=== PATIENT | male | born 1985 | race Caucasian/White ===

== ENCOUNTER 2017-11-06 12:44 | Inpatient (IN) | payer OTHER ==
[2017-11-06] MEDS: ONDANSETRON PF 4 MG/2 ML VIAL. IV ×3 (13:30→19:46)
[2017-11-06 13:44] LABS: BASO # 0.1 x10^3/uL (0.0-0.2); BASO % 0 % (0-3); EOS # 0.1 x10^3/uL (0.0-0.7); EOS % 1 % (0-3); HEMATOCRIT 48.9 % (39.0-53.0); LYMPH % 17 % (24-48); MEAN CORPUSCULAR HEMOGLOBIN 29 pg (25-35); MEAN CORPUSCULAR HGB CONC 35 g/dL (31-37); MEAN CORPUSCULAR VOLUME 84 fL (79-100); MONO # 1.3 x10^3/uL (0.0-1.1); MONO % 5 % (0-9); NEUT # 18.6 x10^3uL (1.8-7.7); NEUT % 77 % (31-73); PLATELET COUNT 312 x10^3/uL (140-400); RED BLOOD COUNT 5.82 x10^6/uL (4.30-5.70); RED CELL DISTRIBUTION WIDTH 14.1 % (11.5-14.5); WHITE BLOOD COUNT 24.1 x10^3/uL (4.0-11.0)
[2017-11-06 13:45] LABS: ADD MAN DIFF? YES
[2017-11-06 14:06] LABS: ANION GAP 15 (6-14); BLOOD UREA NITROGEN 12 mg/dL (8-26); BUN/CREATININE RATIO 10 (6-20); CALCIUM 9.4 mg/dL (8.5-10.1); CARBON DIOXIDE 23 mmol/L (21-32); CHLORIDE 100 mmol/L (98-107); CREATININE 1.2 mg/dL (0.7-1.3); GFR 69.7; GLUCOSE 155 mg/dL (70-99); SODIUM 138 mmol/L (136-145)
[2017-11-06 14:13] LABS: LACTIC ACID 0.9 mmol/L (0.4-2.0)
[2017-11-06 14:18] LABS: TROPONINI < 0.017 ng/mL (0.000-0.055)
[2017-11-06 14:21] LABS: ALBUMIN 4.8 g/dL (3.4-5.0); ALBUMIN/GLOBULIN RATIO 1.2 (1.0-1.7); ALK PHOS 121 U/L (46-116); ALT (SGPT) 72 U/L (16-63); AST (SGOT) 23 U/L (15-37); TOTAL BILIRUBIN 0.5 mg/dL (0.2-1.0); TOTAL PROTEIN 8.7 g/dL (6.4-8.2)
[2017-11-06 14:23] LABS: BILIRUBIN,URINE NEGATIVE (NEG); CLARITY,URINE CLEAR; COLOR,URINE YELLOW; GLUCOSE,URINE NEGATIVE (NEG); NITRITE,URINE NEGATIVE (NEG); PROTEIN,URINE NEGATIVE (NEG-TRACE); UROBILINOGEN,URINE 0.2 mg/dL (0.2 mg/dL)
[2017-11-06 14:35] LABS: BACTERIA,URINE 0 /HPF (0-FEW); HYALINE CASTS, URINE FEW /HPF; RBC,URINE 0 /HPF (0-2); SQUAMOUS EPITHELIAL CELL,UR OCC /LPF; WBC,URINE RARE /HPF (0-4)
[2017-11-06 14:58] LABS: LIPASE 27680 U/L (73-393)
[2017-11-06] MEDS: MORPHINE SULFATE 4 MG/ML DISP.SYRIN. IV/SQ (14:58)
[2017-11-06 15:04] LABS: % BANDS 5 % (0-9); % LYMPHS 17 % (24-48); % MONOS 2 % (0-10); % SEGS 76 % (35-66); PLT ESTIMATE ADEQUATE (ADEQUATE)
[2017-11-06] MEDS: IOHEXOL 300 MG/ML 100ML VIAL. IV (15:22)
[2017-11-06] MEDS ORDERED: CONTRAST GIVEN. MC (15:30)
[2017-11-06] MEDS: MORPHINE SULFATE 4 MG/ML DISP.SYRIN. IV ×2 (17:12→19:39)
[2017-11-06] MEDS: IV DEXTROSE 5%-LACT RINGERS 1,000 ML IV (17:26)
[2017-11-06] MEDS: NICOTINE 21MG PATCH. TD (18:00)
[2017-11-06 18:39] LABS: PROTHROMBIN TIME PATIENT 12.9 SEC (11.7-14.0)
[2017-11-06] MEDS: LORazepam 0.5 MG TABLET PO (19:39)
[2017-11-06] MEDS: fentaNYL PF VIAL 100 MCG/2 ML VIAL IV ×2 (21:09→23:28)
[2017-11-06] MEDS ORDERED: fentaNYL PF VIAL 100 MCG/2 ML VIAL IM (21:15)
[2017-11-06 22:14] LABS: LACTIC ACID 3.7 mmol/L (0.4-2.0)
[2017-11-06] MEDS ORDERED: PIP/TAZO PER PHARMACY MC (23:15)
[2017-11-06] MEDS: PIPERACILLIN/TAZOBACTAM 4.5 GM in IV NORMAL SALINE 100ML 100 ML IV (23:32)
[2017-11-06] MEDS: IV NORMAL SALINE 1000ML BAG 1,000 ML IV (23:37)
[2017-11-07] MEDS: fentaNYL PF VIAL 100 MCG/2 ML VIAL IV ×5 (00:41→05:53)
[2017-11-07 04:28] LABS: ADD MAN DIFF? NO
[2017-11-07 04:48] LABS: ALK PHOS 96 U/L (46-116); ALT (SGPT) 55 U/L (16-63); ANION GAP 11 (6-14); AST (SGOT) 25 U/L (15-37); BLOOD UREA NITROGEN 18 mg/dL (8-26); BUN/CREATININE RATIO 11 (6-20); CALCIUM 8.9 mg/dL (8.5-10.1); CARBON DIOXIDE 24 mmol/L (21-32); CHLORIDE 97 mmol/L (98-107); CREATININE 1.6 mg/dL (0.7-1.3); GLUCOSE 173 mg/dL (70-99); SODIUM 132 mmol/L (136-145); TOTAL BILIRUBIN 1.1 mg/dL (0.2-1.0); TOTAL PROTEIN 8.2 g/dL (6.4-8.2)
[2017-11-07 04:51] LABS: LACTIC ACID 3.8 mmol/L (0.4-2.0)
[2017-11-07 05:00] LABS: POTASSIUM 6.1 mmol/L (3.5-5.1)
[2017-11-07 05:18] LABS: BASO % 0 % (0-3); EOS % 0 % (0-3); HEMATOCRIT 53.4 % (39.0-53.0); HEMOGLOBIN 18.7 g/dL (13.0-17.5); LYMPH # 0.9 x10^3/uL (1.0-4.8); LYMPH % 5 % (24-48); MEAN CORPUSCULAR HEMOGLOBIN 30 pg (25-35); MEAN CORPUSCULAR HGB CONC 35 g/dL (31-37); MEAN CORPUSCULAR VOLUME 85 fL (79-100); MONO # 0.9 x10^3/uL (0.0-1.1); MONO % 5 % (0-9); NEUT # 16.9 x10^3uL (1.8-7.7); NEUT % 90 % (31-73); PLATELET COUNT 230 x10^3/uL (140-400); RED BLOOD COUNT 6.32 x10^6/uL (4.30-5.70); WHITE BLOOD COUNT 18.8 x10^3/uL (4.0-11.0)
[2017-11-07] MEDS: PROCHLORPERAZINE 10 MG/2 ML VIAL. IV ×2 (05:54→07:54)
[2017-11-07] MEDS: IV NORMAL SALINE 500ML BAG 500 ML IV (06:00)
[2017-11-07] MEDS ORDERED: CEFEPIME HCL 2 GM in IV DEXTROSE 5% 100ML 100 ML IV (06:00)
[2017-11-07] MEDS: PIPERACILLIN/TAZOBACTAM 4.5 GM in IV NORMAL SALINE 100ML 100 ML IV ×4 (06:01→23:04)
[2017-11-07] MEDS: CEFEPIME HCL IV Push 2 GM VIAL. IVP ×3 (06:03→21:23)
[2017-11-07 06:25] LABS: TROPONINI < 0.017 ng/mL (0.000-0.055)
[2017-11-07 06:27] LABS: TRIGLYCERIDES 534 mg/dL (0-150)
[2017-11-07] MEDS ORDERED: NALOXONE 0.4 MG/ML VIAL. IV (07:15)
[2017-11-07] MEDS: IV 1/2 NORMAL SALINE 500 ML IV (07:15)
[2017-11-07] MEDS: IV NORMAL SALINE 1000ML BAG 1,000 ML IV ×4 (08:25→21:23)
[2017-11-07] MEDS: MORPHINE SULFATE/PF 30 ML IV ×2 (09:03→22:09)
[2017-11-07] MEDS: NICOTINE 21MG PATCH. TD (10:34)
[2017-11-07 11:04] LABS: LACTIC ACID 2.3 mmol/L (0.4-2.0)
[2017-11-07] MEDS: PANTOPRAZOLE IV PUSH 40 MG VIAL. IVP (11:40)
[2017-11-07 17:47] LABS: LACTIC ACID 1.4 mmol/L (0.4-2.0)
[2017-11-07 23:34] LABS: LACTIC ACID 1.1 mmol/L (0.4-2.0)
[2017-11-08] MEDS: IV NORMAL SALINE 1000ML BAG 1,000 ML IV ×5 (04:09→22:15)
[2017-11-08] MEDS: CEFEPIME HCL IV Push 2 GM VIAL. IVP ×3 (05:03→21:09)
[2017-11-08] MEDS: PIPERACILLIN/TAZOBACTAM 4.5 GM in IV NORMAL SALINE 100ML 100 ML IV ×4 (05:08→22:59)
[2017-11-08] MEDS: PANTOPRAZOLE IV PUSH 40 MG VIAL. IVP (05:08)
[2017-11-08] MEDS: PROCHLORPERAZINE 10 MG/2 ML VIAL. IV (07:59)
[2017-11-08] MEDS: NICOTINE 21MG PATCH. TD (07:59)
[2017-11-08 12:26] LABS: BASO % 0 % (0-3); EOS % 0 % (0-3); HEMATOCRIT 44.1 % (39.0-53.0); HEMOGLOBIN 15.2 g/dL (13.0-17.5); LYMPH # 0.9 x10^3/uL (1.0-4.8); LYMPH % 6 % (24-48); MEAN CORPUSCULAR HEMOGLOBIN 29 pg (25-35); MEAN CORPUSCULAR HGB CONC 35 g/dL (31-37); MEAN CORPUSCULAR VOLUME 85 fL (79-100); MONO # 0.6 x10^3/uL (0.0-1.1); MONO % 4 % (0-9); NEUT # 13.4 x10^3uL (1.8-7.7); NEUT % 90 % (31-73); PLATELET COUNT 164 x10^3/uL (140-400); RED BLOOD COUNT 5.21 x10^6/uL (4.30-5.70); RED CELL DISTRIBUTION WIDTH 14.1 % (11.5-14.5); WHITE BLOOD COUNT 14.9 x10^3/uL (4.0-11.0)
[2017-11-08 12:37] LABS: ADD MAN DIFF? YES
[2017-11-08 12:41] LABS: ALBUMIN 2.5 g/dL (3.4-5.0); ALBUMIN/GLOBULIN RATIO 0.7 (1.0-1.7); ALK PHOS 64 U/L (46-116); ALT (SGPT) 32 U/L (16-63); ANION GAP 12 (6-14); AST (SGOT) 24 U/L (15-37); BLOOD UREA NITROGEN 11 mg/dL (8-26); BUN/CREATININE RATIO 9 (6-20); CARBON DIOXIDE 21 mmol/L (21-32); CHLORIDE 99 mmol/L (98-107); CREATININE 1.2 mg/dL (0.7-1.3); GFR 69.7; GLUCOSE 166 mg/dL (70-99); LIPASE 1445 U/L (73-393); SODIUM 132 mmol/L (136-145); TOTAL BILIRUBIN 3.9 mg/dL (0.2-1.0); TOTAL PROTEIN 6.3 g/dL (6.4-8.2)
[2017-11-08 13:56] LABS: % BANDS 17 % (0-9); % LYMPHS 7 % (24-48); % MONOS 1 % (0-10); % SEGS 75 % (35-66); PLT ESTIMATE ADEQUATE (ADEQUATE)
[2017-11-08] MEDS: MORPHINE SULFATE/PF 30 ML IV (17:35)
[2017-11-08] MEDS: LACTOBACILLUS RHAMNOSUS GG 1 CAPSULE. PO (19:50)
[2017-11-08 21:11] LABS: IGG1 436 mg/dL (248-810); IGG2 376 mg/dL (130-555); IGG3 54 mg/dL (15-102); IGG4 31 mg/dL (2-96); TOTAL IGG 851 mg/dL (700-1600)
[2017-11-09] MEDS: NICOTINE POLACRILEX 2MG GUM PACKAGE of 12. BC ×3 (00:43→20:35)
[2017-11-09] MEDS: IV NORMAL SALINE 1000ML BAG 1,000 ML IV ×4 (04:10→20:09)
[2017-11-09] MEDS: PIPERACILLIN/TAZOBACTAM 4.5 GM in IV NORMAL SALINE 100ML 100 ML IV ×3 (04:54→17:56)
[2017-11-09] MEDS: CEFEPIME HCL IV Push 2 GM VIAL. IVP (04:54)
[2017-11-09 05:23] LABS: ADD MAN DIFF? NO
[2017-11-09 05:45] LABS: BASO % 0 % (0-3); EOS % 0 % (0-3); HEMATOCRIT 39.9 % (39.0-53.0); HEMOGLOBIN 13.6 g/dL (13.0-17.5); LYMPH # 0.8 x10^3/uL (1.0-4.8); LYMPH % 8 % (24-48); MEAN CORPUSCULAR HEMOGLOBIN 29 pg (25-35); MEAN CORPUSCULAR HGB CONC 34 g/dL (31-37); MEAN CORPUSCULAR VOLUME 85 fL (79-100); MONO # 0.6 x10^3/uL (0.0-1.1); MONO % 6 % (0-9); NEUT # 9.2 x10^3uL (1.8-7.7); NEUT % 86 % (31-73); PLATELET COUNT 141 x10^3/uL (140-400); RED BLOOD COUNT 4.69 x10^6/uL (4.30-5.70); RED CELL DISTRIBUTION WIDTH 14.1 % (11.5-14.5); WHITE BLOOD COUNT 10.8 x10^3/uL (4.0-11.0)
[2017-11-09 06:15] LABS: ALBUMIN 2.6 g/dL (3.4-5.0); ALBUMIN/GLOBULIN RATIO 0.8 (1.0-1.7); ALK PHOS 68 U/L (46-116); ALT (SGPT) 38 U/L (16-63); ANION GAP 15 (6-14); AST (SGOT) 38 U/L (15-37); BLOOD UREA NITROGEN 9 mg/dL (8-26); BUN/CREATININE RATIO 10 (6-20); CALCIUM 7.9 mg/dL (8.5-10.1); CARBON DIOXIDE 19 mmol/L (21-32); CHLORIDE 99 mmol/L (98-107); CREATININE 0.9 mg/dL (0.7-1.3); DIRECT BILIRUBIN 3.7 mg/dL (0.0-0.2); GFR 97.2; GLUCOSE 133 mg/dL (70-99); LIPASE 775 U/L (73-393); SODIUM 133 mmol/L (136-145); TOTAL BILIRUBIN 5.1 mg/dL (0.2-1.0); TOTAL PROTEIN 5.7 g/dL (6.4-8.2)
[2017-11-09 07:57] LABS: LACTIC ACID 0.6 mmol/L (0.4-2.0)
[2017-11-09] MEDS: MORPHINE SULFATE/PF 30 ML IV ×3 (08:36→20:35)
[2017-11-09] MEDS: PANTOPRAZOLE IV PUSH 40 MG VIAL. IVP (08:42)
[2017-11-09] MEDS: NICOTINE 21MG PATCH. TD (08:44)
[2017-11-09] MEDS: LACTOBACILLUS RHAMNOSUS GG 1 CAPSULE. PO ×2 (08:44→20:08)
[2017-11-09 18:14] LABS: ANA INTERP Negative (.)
[2017-11-10] MEDS: IV NORMAL SALINE 1000ML BAG 1,000 ML IV ×5 (05:18→20:55)
[2017-11-10] MEDS: PIPERACILLIN/TAZOBACTAM 4.5 GM in IV NORMAL SALINE 100ML 100 ML IV ×2 (05:18)
[2017-11-10 05:20] LABS: ADD MAN DIFF? NO
[2017-11-10] MEDS: MORPHINE SULFATE/PF 30 ML IV (05:24)
[2017-11-10 05:37] LABS: BASO % 0 % (0-3); EOS # 0.1 x10^3/uL (0.0-0.7); EOS % 2 % (0-3); HEMATOCRIT 37.9 % (39.0-53.0); HEMOGLOBIN 12.9 g/dL (13.0-17.5); LYMPH # 1.1 x10^3/uL (1.0-4.8); LYMPH % 12 % (24-48); MEAN CORPUSCULAR HEMOGLOBIN 29 pg (25-35); MEAN CORPUSCULAR HGB CONC 34 g/dL (31-37); MEAN CORPUSCULAR VOLUME 86 fL (79-100); MONO # 0.9 x10^3/uL (0.0-1.1); MONO % 10 % (0-9); NEUT # 6.9 x10^3uL (1.8-7.7); NEUT % 77 % (31-73); PLATELET COUNT 155 x10^3/uL (140-400); RED BLOOD COUNT 4.43 x10^6/uL (4.30-5.70); RED CELL DISTRIBUTION WIDTH 13.9 % (11.5-14.5)
[2017-11-10 05:47] LABS: ALBUMIN 2.6 g/dL (3.4-5.0); ALBUMIN/GLOBULIN RATIO 0.6 (1.0-1.7); ALK PHOS 81 U/L (46-116); ALT (SGPT) 50 U/L (16-63); ANION GAP 10 (6-14); AST (SGOT) 44 U/L (15-37); BLOOD UREA NITROGEN 7 mg/dL (8-26); BUN/CREATININE RATIO 8 (6-20); CALCIUM 8.2 mg/dL (8.5-10.1); CARBON DIOXIDE 26 mmol/L (21-32); CHLORIDE 105 mmol/L (98-107); CREATININE 0.9 mg/dL (0.7-1.3); GFR 97.2; GLUCOSE 115 mg/dL (70-99); POTASSIUM 3.7 mmol/L (3.5-5.1); SODIUM 141 mmol/L (136-145); TOTAL BILIRUBIN 5.4 mg/dL (0.2-1.0); TOTAL PROTEIN 6.8 g/dL (6.4-8.2)
[2017-11-10] MEDS: PANTOPRAZOLE IV PUSH 40 MG VIAL. IVP (09:02)
[2017-11-10] MEDS: NICOTINE 21MG PATCH. TD (09:04)
[2017-11-10] MEDS ORDERED: oxyCODONE/APAP 5/325 1 TAB TABLET PO (10:30)
[2017-11-10 11:38] LABS: LIPASE 258 U/L (73-393)
[2017-11-10] MEDS: oxyCODONE/APAP 10/325 1 TAB TABLET PO ×3 (13:18→22:37)
[2017-11-10] MEDS: PANTOPRAZOLE 40 MG TABLET.DR. PO (13:32)
[2017-11-10] MEDS: DOCUSATE SODIUM 100 MG CAPSULE. PO (13:32)
[2017-11-10] MEDS: POLYETHYLENE GLYCOL 3350 17 GM PACKET. PO (13:32)
[2017-11-10] MEDS: LACTOBACILLUS RHAMNOSUS GG 1 CAPSULE. PO ×2 (13:32→21:17)
[2017-11-10] MEDS: fentaNYL PF VIAL 100 MCG/2 ML VIAL IV ×4 (16:30→23:31)
[2017-11-10] MEDS: MAGNESIUM HYDROXIDE 2,400 MG/30 ML ORAL.SUSP. PO (19:24)
[2017-11-10] MEDS: PROCHLORPERAZINE 10 MG/2 ML VIAL. IV (19:29)
[2017-11-10] MEDS: LORazepam 0.5 MG TABLET PO (21:17)
[2017-11-11] MEDS: oxyCODONE/APAP 10/325 1 TAB TABLET PO ×6 (03:09→23:20)
[2017-11-11] MEDS: fentaNYL PF VIAL 100 MCG/2 ML VIAL IV ×10 (03:10→23:22)
[2017-11-11] MEDS: PROCHLORPERAZINE 10 MG/2 ML VIAL. IV (03:12)
[2017-11-11] MEDS: IV NORMAL SALINE 1000ML BAG 1,000 ML IV ×2 (03:35→05:37)
[2017-11-11 04:24] LABS: HEMATOCRIT 36.1 % (39.0-53.0); HEMOGLOBIN 12.5 g/dL (13.0-17.5); MEAN CORPUSCULAR HEMOGLOBIN 29 pg (25-35); MEAN CORPUSCULAR HGB CONC 35 g/dL (31-37); MEAN CORPUSCULAR VOLUME 85 fL (79-100); PLATELET COUNT 182 x10^3/uL (140-400); RED BLOOD COUNT 4.26 x10^6/uL (4.30-5.70); RED CELL DISTRIBUTION WIDTH 13.9 % (11.5-14.5); WHITE BLOOD COUNT 10.5 x10^3/uL (4.0-11.0)
[2017-11-11 04:36] LABS: ALBUMIN 2.6 g/dL (3.4-5.0); ALBUMIN/GLOBULIN RATIO 0.6 (1.0-1.7); ALK PHOS 163 U/L (46-116); ALT (SGPT) 64 U/L (16-63); ANION GAP 10 (6-14); AST (SGOT) 58 U/L (15-37); BLOOD UREA NITROGEN 6 mg/dL (8-26); BUN/CREATININE RATIO 8 (6-20); CALCIUM 8.6 mg/dL (8.5-10.1); CARBON DIOXIDE 25 mmol/L (21-32); CHLORIDE 100 mmol/L (98-107); CREATININE 0.8 mg/dL (0.7-1.3); GFR 111.3; GLUCOSE 177 mg/dL (70-99); LIPASE 170 U/L (73-393); POTASSIUM 3.3 mmol/L (3.5-5.1); SODIUM 135 mmol/L (136-145); TOTAL BILIRUBIN 4.6 mg/dL (0.2-1.0); TOTAL PROTEIN 6.8 g/dL (6.4-8.2)
[2017-11-11] MEDS: LACTOBACILLUS RHAMNOSUS GG 1 CAPSULE. PO ×2 (08:41→20:17)
[2017-11-11] MEDS: DOCUSATE SODIUM 100 MG CAPSULE. PO (08:41)
[2017-11-11] MEDS: POLYETHYLENE GLYCOL 3350 17 GM PACKET. PO (08:42)
[2017-11-11] MEDS: NICOTINE 21MG PATCH. TD (08:45)
[2017-11-11] MEDS: PANTOPRAZOLE 40 MG TABLET.DR. PO (08:58)
[2017-11-11] MEDS: LORazepam 0.5 MG TABLET PO (19:10)
[2017-11-11] MEDS: SIMETHICONE 80 MG TAB.CHEW PO (19:10)
[2017-11-11] MEDS: traMADol 50 MG TABLET PO (19:15)
[2017-11-11] MEDS: MAGNESIUM HYDROXIDE 2,400 MG/30 ML ORAL.SUSP. PO (20:20)
[2017-11-11] MEDS: ALPRAZolam 1 MG TABLET PO (22:19)
[2017-11-11] MEDS: ZOLPIDEM 5 MG TABLET. PO (22:19)
[2017-11-12] MEDS: fentaNYL PF VIAL 100 MCG/2 ML VIAL IV ×6 (01:23→23:02)
[2017-11-12] MEDS: SIMETHICONE 80 MG TAB.CHEW PO ×4 (02:45→19:46)
[2017-11-12] MEDS: oxyCODONE/APAP 10/325 1 TAB TABLET PO ×5 (03:27→20:15)
[2017-11-12] MEDS: MORPHINE SULFATE 4 MG/ML DISP.SYRIN. IV ×8 (05:07→20:57)
[2017-11-12] MEDS: ALPRAZolam 1 MG TABLET PO ×3 (05:16→17:38)
[2017-11-12] MEDS: IV NORMAL SALINE 1000ML BAG 1,000 ML IV (05:54)
[2017-11-12] MEDS: POLYETHYLENE GLYCOL 3350 17 GM PACKET. PO (07:20)
[2017-11-12] MEDS: DOCUSATE SODIUM 100 MG CAPSULE. PO (07:21)
[2017-11-12] MEDS: LACTOBACILLUS RHAMNOSUS GG 1 CAPSULE. PO ×2 (07:21→19:45)
[2017-11-12] MEDS: PANTOPRAZOLE 40 MG TABLET.DR. PO (07:21)
[2017-11-12] MEDS: NICOTINE 21MG PATCH. TD (07:21)
[2017-11-12 13:23] LABS: ALBUMIN 2.7 g/dL (3.4-5.0); ALK PHOS 236 U/L (46-116); ALT (SGPT) 59 U/L (16-63); ANION GAP 9 (6-14); AST (SGOT) 38 U/L (15-37); BLOOD UREA NITROGEN 7 mg/dL (8-26); CALCIUM 8.7 mg/dL (8.5-10.1); CARBON DIOXIDE 28 mmol/L (21-32); CHLORIDE 103 mmol/L (98-107); CREATININE 0.9 mg/dL (0.7-1.3); DIRECT BILIRUBIN 1.6 mg/dL (0.0-0.2); GFR 97.2; GLUCOSE 139 mg/dL (70-99); LIPASE 159 U/L (73-393); POTASSIUM 3.7 mmol/L (3.5-5.1); SODIUM 140 mmol/L (136-145); TOTAL BILIRUBIN 2.3 mg/dL (0.2-1.0); TOTAL PROTEIN 7.2 g/dL (6.4-8.2)
[2017-11-12] MEDS: MAGNESIUM HYDROXIDE 2,400 MG/30 ML ORAL.SUSP. PO (14:31)
[2017-11-12] MEDS: LIDO:MAALOX 1:1 20 ML SINGLE DOSE. PO ×2 (15:29→21:31)
[2017-11-12] MEDS: NICOTINE POLACRILEX 2MG GUM PACKAGE of 12. BC (19:45)
[2017-11-12] MEDS: ZOLPIDEM 5 MG TABLET. PO (19:45)
[2017-11-13] MEDS: ALPRAZolam 1 MG TABLET PO ×2 (00:32→07:54)
[2017-11-13] MEDS: MORPHINE SULFATE 4 MG/ML DISP.SYRIN. IV ×2 (00:33→05:45)
[2017-11-13] MEDS: IV NORMAL SALINE 1000ML BAG 1,000 ML IV (00:33)
[2017-11-13] MEDS: fentaNYL PF VIAL 100 MCG/2 ML VIAL IV (02:53)
[2017-11-13] MEDS: traMADol 50 MG TABLET PO (06:35)
[2017-11-13] MEDS: PANTOPRAZOLE 40 MG TABLET.DR. PO (07:54)
[2017-11-13] MEDS: LACTOBACILLUS RHAMNOSUS GG 1 CAPSULE. PO (08:27)
[2017-11-13] MEDS: DOCUSATE SODIUM 100 MG CAPSULE. PO (08:27)
[2017-11-13] MEDS: POLYETHYLENE GLYCOL 3350 17 GM PACKET. PO (08:27)
[2017-11-13] MEDS: oxyCODONE/APAP 10/325 1 TAB TABLET PO (08:28)
[2017-11-13] MEDS: NICOTINE 21MG PATCH. TD (08:47)
== END 2017-11-13 12:00 | disposition home or self-care (01) | DRG 871 ==
LOC: 1 WEST ICU 11-07 07:42 → ER 12:44 → 5 NORTH 11-07 20:53
DX: A41.9 Sepsis, unspecified organism (principal); K85.90 Acute pancreatitis without necrosis or infection, unspecified; N17.9 Acute kidney failure, unspecified; E44.1 Mild protein-calorie malnutrition; E87.2 Acidosis; R65.10 Systemic inflammatory response syndrome (SIRS) of non-infectious origin without acute organ dysfunction; Z68.31 Body mass index [BMI] 31.0-31.9, adult; E66.01 Morbid (severe) obesity due to excess calories; E87.5 Hyperkalemia; F17.210 Nicotine dependence, cigarettes, uncomplicated; F31.9 Bipolar disorder, unspecified; F41.0 Panic disorder [episodic paroxysmal anxiety]; K59.00 Constipation, unspecified; Z81.8 Family history of other mental and behavioral disorders; Z88.6 Allergy status to analgesic agent; Z88.8 Allergy status to other drugs, medicaments and biological substances; D72.829 Elevated white blood cell count, unspecified; Z90.49 Acquired absence of other specified parts of digestive tract; E80.6 Other disorders of bilirubin metabolism; M54.5 Low back pain
CPT/HCPCS: 36415; 71045; 74018; 74177; 74181; 76705; 80048; 80053; 80076; 81001; 82248; 82787; 83605; 83690; 84443; 84478; 84484; 85007; 85025; 85027; 85610; 86038; 87040; 93005; 96374; 96375; 96376; 99291; 99291-25; C9113; J0692; J0780; J2060; J2270; J2405; J2543; J3010; J3490; J7030; J7040; Q9967

== ENCOUNTER 2021-01-09 14:50 | Emergency (ER) | payer OTHER ==
[~2021-01-09] VITALS: Ht 185.4 cm; Wt 104.5 kg
[~2021-01-09 14:50] MED LIST: ALPR0.5T6 PO; LORA0.5T96 PO; OXYC1TAB7 PO
[2021-01-09 17:01] LABS: BASO # 0.1 x10^3/uL (0.0-0.2); BASO % 1 % (0-3); EOS # 0.3 x10^3/uL (0.0-0.7); EOS % 3 % (0-3); HEMOGLOBIN 10.6 g/dL (13.0-17.5); LYMPH # 2.3 x10^3/uL (1.0-4.8); LYMPH % 21 % (24-48); MEAN CORPUSCULAR HEMOGLOBIN 24 pg (25-35); MEAN CORPUSCULAR HGB CONC 33 g/dL (31-37); MEAN CORPUSCULAR VOLUME 74 fL (79-100); MONO # 0.5 x10^3/uL (0.0-1.1); MONO % 5 % (0-9); NEUT # 7.6 x10^3/uL (1.8-7.7); NEUT % 69 % (31-73); PLATELET COUNT 411 x10^3/uL (140-400); RED BLOOD COUNT 4.35 x10^6/uL (4.30-5.70); RED CELL DISTRIBUTION WIDTH 16.6 % (11.5-14.5); WHITE BLOOD COUNT 10.9 x10^3/uL (4.0-11.0)
[2021-01-09 17:13] LABS: CALCIUM 9.4 mg/dL (8.5-10.1); CREATININE 0.9 mg/dL (0.7-1.3); GFR 95.5; POTASSIUM 3.8 mmol/L (3.5-5.1)
[2021-01-09] MEDS ORDERED: ONDANSETRON PF 4 MG/2 ML VIAL. IVP ONE (17:15)
[2021-01-09] MEDS ORDERED: IV NORMAL SALINE 1000ML BAG 1,000 ML IV ONE (17:15)
[2021-01-09] MEDS ORDERED: MORPHINE SULFATE 10 MG/ML VIAL. IV ONE ×2 (17:15→20:00)
[2021-01-09 17:18] LABS: ALBUMIN 3.6 g/dL (3.4-5.0); TOTAL BILIRUBIN 0.2 mg/dL (0.2-1.0); TOTAL PROTEIN 7.3 g/dL (6.4-8.2)
[2021-01-09 18:01] LABS: BILIRUBIN,URINE NEGATIVE (NEG); CLARITY,URINE CLEAR; COLOR,URINE YELLOW; NITRITE,URINE NEGATIVE (NEG); PH,URINE 8.5 (<5.0-8.0); PROTEIN,URINE 30 mg/dL (NEG-TRACE); UROBILINOGEN,URINE 0.2 mg/dL (0.2 mg/dL)
--- NOTE | 2021-01-09 18:04 | ED.ADGEN ---
Past Medical History Past Medical History: Anxiety Past Surgical History: Other Additional Past Surgical Histo: FLUID DRAINED OFF OF CYST/ABDOMEN Smoking Status: Current Every Day Smoker Additional Information: 1 PPD Alcohol Use: None Drug Use: None General Adult EDM: Chief Complaint: ABDOMINAL PAIN HPI: HPI: Patient is a 35-year-old male who presents to the emergency room complaining of epigastric abdominal pain and vomiting. Patient has been having issues with chronic pancreatitis for the last 3 months. He last got out of [facility] 2 weeks ago. He has been out of pain medicine for the last 3 or 4 days. He is supposed to be see a pain specialist next week. He states this feels very similar to previous episodes. He is requesting pain medicine. Review of Systems: Review of Systems: Complete ROS is negative unless otherwise documented in HPI Current Medications: Current Medications Medications (Trade) Dose Ordered Sig/Chely Start Time Stop Time Status Last Admin Dose Admin Morphine Sulfate (Morphine Sulfate) 5 mg 1X ONCE 01/09/21 17:15 01/09/21 17:16 DC 01/09/21 17:19 5 MG Ondansetron HCl (Zofran) 4 mg 1X ONCE 01/09/21 17:15 01/09/21 17:16 DC 01/09/21 17:19 4 MG Sodium Chloride 1,000 ml @ 1,000 mls/hr 1X ONCE 01/09/21 17:15 01/09/21 18:14 DC 01/09/21 17:18 1,000 MLS/HR Allergies: Allergies: Allergies Coded Allergies Type Severity Reaction Last Updated Verified aspirin Allergy Severe anaphalyxis 11/06/17 Yes hydrocodone Allergy Intermediate 11/06/17 Yes Physical Exam: PE: General: Awake, alert, NAD. Well Nourished, well hydrated. Cooperative HEENT: Atraumatic, EOMI, PERRL, airway patent, moist oral mucosa Neck: Supple, trachea midline Respiratory: CTA bilaterally, normal effort, no wheezing/crackles CV: RRR, no murmur, cap refill <2 GI: Soft, nondistended, epigastric, no masses MSK: No obvious deformities Skin: Warm, dry, intact Neuro: A&O x3, speech NL, sensory and motor grossly intact, no focal deficits Psych: Normal affect, normal mood, not suicidal or homicidal Current Patient Data: Labs: Laboratory Tests Test 01/09/21 16:25 01/09/21 17:53 White Blood Count 10.9 x10^3/uL (4.0-11.0) Red Blood Count 4.35 x10^6/uL (4.30-5.70) Hemoglobin 10.6 g/dL (13.0-17.5) L Hematocrit 32.0 % (39.0-53.0) L Mean Corpuscular Volume 74 fL (79-100) L Mean Corpuscular Hemoglobin 24 pg (25-35) L Mean Corpuscular Hemoglobin Concent 33 g/dL (31-37) Red Cell Distribution Width 16.6 % (11.5-14.5) H Platelet Count 411 x10^3/uL (140-400) H Neutrophils (%) (Auto) 69 % (31-73) Lymphocytes (%) (Auto) 21 % (24-48) L Monocytes (%) (Auto) 5 % (0-9) Eosinophils (%) (Auto) 3 % (0-3) Basophils (%) (Auto) 1 % (0-3) Neutrophils # (Auto) 7.6 x10^3/uL (1.8-7.7) Lymphocytes # (Auto) 2.3 x10^3/uL (1.0-4.8) Monocytes # (Auto) 0.5 x10^3/uL (0.0-1.1) Eosinophils # (Auto) 0.3 x10^3/uL (0.0-0.7) Basophils # (Auto) 0.1 x10^3/uL (0.0-0.2) Sodium Level 138 mmol/L (136-145) Potassium Level 3.8 mmol/L (3.5-5.1) Chloride Level 100 mmol/L (98-107) Carbon Dioxide Level 25 mmol/L (21-32) Anion Gap 13 (6-14) Blood Urea Nitrogen 4 mg/dL (8-26) L Creatinine 0.9 mg/dL (0.7-1.3) Estimated GFR (Cockcroft-Gault) 95.5 BUN/Creatinine Ratio 4 (6-20) L Glucose Level 138 mg/dL (70-99) H Calcium Level 9.4 mg/dL (8.5-10.1) Total Bilirubin 0.2 mg/dL (0.2-1.0) Aspartate Amino Transferase (AST) 8 U/L (15-37) L Alanine Aminotransferase (ALT) 18 U/L (16-63) Alkaline Phosphatase 224 U/L (46-116) H Total Protein 7.3 g/dL (6.4-8.2) Albumin 3.6 g/dL (3.4-5.0) Albumin/Globulin Ratio 1.0 (1.0-1.7) Lipase 864 U/L (73-393) H Urine Collection Type Unknown Urine Color Yellow Urine Clarity Clear Urine pH 8.5 (<5.0-8.0) Urine Specific Hammon 1.020 (1.000-1.030) Urine Protein 30 mg/dL (NEG-TRACE) Urine Glucose (UA) Negative mg/dL (NEG) Urine Ketones (Stick) Negative mg/dL (NEG) Urine Blood Negative (NEG) Urine Nitrite Negative (NEG) Urine Bilirubin Negative (NEG) Urine Urobilinogen Dipstick 0.2 mg/dL (0.2 mg/dL) Urine Leukocyte Esterase Negative (NEG) Urine RBC 0 /HPF (0-2) Urine WBC 5-10 /HPF (0-4) Urine Bacteria Few /HPF (0-FEW) Urine Hyaline Casts Occasional /HPF Urine Mucus Mod /LPF Laboratory Tests 01/09/21 16:25 Laboratory Tests 01/09/21 16:25 Vital Signs: Vital Signs Date Time Temp Pulse Resp B/P (MAP) Pulse Ox O2 Delivery O2 Flow Rate FiO2 01/09/21 17:49 19 96 Room Air 01/09/21 15:58 99.2 86 127/80 (108) 99.2 EKG: EKG: [] Heart Score: C/O Chest Pain: N/A Risk Factors: Risk Factors: DM, Current or recent (<one month) smoker, HTN, HLP, family history of CAD, obesity. Risk Scores: Score 0 - 3: 2.5% MACE over next 6 weeks - Discharge Home Score 4 - 6: 20.3% MACE over next 6 weeks - Admit for Clinical Observation Score 7 - 10: 72.7% MACE over next 6 weeks - Early Invasive Strategies Radiology/Procedures: Radiology/Procedures: [] Course & Med Decision Making: Course & Med Decision Making Pertinent Labs and Imaging studies reviewed. (See chart for details) Patient is 35-year-old male with past medical history of pancreatitis who presents to the emergency room complaining of a pancreatitis flareup. Patient is requesting narcotics. Abdominal lab work was ordered. Patient discussed with Dr. Rick who will assume care. Shan Disclaimer: Shan Disclaimer: This electronic medical record was generated, in whole or in part, using a voice recognition dictation system. Departure Departure Referrals: NO PCP (PCP) GUILLERMINA NINA MD Jan 09, 2021 18:04
[2021-01-09 18:13] LABS: BACTERIA,URINE FEW /HPF (0-FEW); HYALINE CASTS, URINE OCCASIONAL /HPF; RBC,URINE 0 /HPF (0-2)
[2021-01-09] MEDS ORDERED: CONTRAST GIVEN. MC PRN (19:15)
[2021-01-09] MEDS ORDERED: IOHEXOL 300 MG/ML 100ML VIAL. IV ONE (19:15)
[2021-01-09 19:54] VITALS: BP 115/72
[2021-01-09] MEDS ORDERED: HYDROmorphone 2 MG/ML VIAL ONE (19:59)
--- NOTE | 2021-01-09 20:04 | RAD ---
INDICATION: Reason: abd pain, vomtiing, lipase elevated, h/o pancreatitis / Spl. Instructions: OMNI 3 00, 75 ML IV / History: . COMPARISON: November 2018 TECHNIQUE: Axial CT images obtained through the abdomen and pelvis with contrast. One or more of the following individualized dose reduction techniques were utilized for this examinat ion: 1. Automated exposure control; 2. Adjustment of the mA and/or kV according to patient size; 3 . Use of iterative reconstruction technique. FINDINGS: Mild groundglass nodular opacity right lung base. Wall thickening of the distal esophagus. Abdominal aorta is not aneurysmal. There is high density material seen at the pancreas as well as extending along the stomach and liver and mesenteric fat. This region of high density measures up to 135 x 70 mm within the upper abdomen. A portion of the likely extends subcapsular into the medial aspect of the liver. There is a calcification seen at the pancreatic uncinate process measuring approximately 6 mm. There is also large amount of edema surrounding the pancreas as well as low-density region at the pancreati c body measuring up to 56 mm. Spleen prominent in size. No hydronephrosis. Urinary bladder is partially distended. Colonic diverticulosis. No periappendiceal inflammatory changes. Scattered prominent lymph nodes within the mesentery. IMPRESSION: * There is a large amount of inflammatory changes within the upper abdomen as well as high density m aterial seen involving the pancreas, stomach and liver. Could be secondary to causes such as severe p ancreatitis with surrounding blood or phlegmon formation extending along the wall the stomach as well as the liver. There is some loculated lower density regions as well which could be from loculated fl uid which could be sterile or infected. At the pancreas there is some lower density regions as well w hich could be secondary to pseudocyst or abscess formation with pancreatic necrosis a possibility as well given the severity of findings. There is severe wall thickening of the stomach through this area with a large amount of surrounding inflammation which could be secondary to the pancreatic process b ut superimposed gastritis or gastric ulcer is not excluded given this finding. Follow-up could also b e obtained to ensure that this appropriately decreases to exclude a gastric mass given the severe wal l thickening.. * There is a calcification at the pancreatic head and uncinate process region which could be parench ymal in nature from chronic pancreatitis or secondary to a stone within the duct. * Lymphadenopathy in the upper abdomen could be reactive in nature. * Wall thickening of the esophagus is identified which can be seen with inflammation. Electronically signed by: Artemio Blum MD (01/09/2021 8:02 PM) [id number]
== END 2021-01-09 20:08 | disposition left against medical advice (07) ==
LOC: ER 14:50
DX: R10.13 Epigastric pain (principal); R11.10 Vomiting, unspecified; F41.9 Anxiety disorder, unspecified; F17.200 Nicotine dependence, unspecified, uncomplicated; Z88.6 Allergy status to analgesic agent; Z88.5 Allergy status to narcotic agent
CPT/HCPCS: 36415; 74177; 80053; 81001; 83690; 85025; 96361; 96374; 96375; 99285; J2270; J2405; J7030; Q9967

== ENCOUNTER 2021-07-15 23:01 | Inpatient (IN) | payer OTHER, MEDICAID ==
[~2021-07-15] VITALS: Ht 188 cm; Wt 79.5 kg
[2021-07-15 23:00] VITALS: BP 118/64
[~2021-07-15 23:01] MED LIST changes: +ATOR40TA59 PO; +ESCITALOPRAM OX20 MG PO; +FENO145T3 PO; +FERR325T14 PO; +GABA-585 PO; +INSU100C4 SQ; +INSU100I27 SQ; +OMEP20TA8 PO; +TRAZ-118 PO
[2021-07-16 03:09] VITALS: BP 119/59
[2021-07-16 07:00] VITALS: BP 110/57
[2021-07-16 11:00] VITALS: BP 107/62
--- NOTE | 2021-07-16 11:24 | NUR ---
SW following. Discussed with RN, pt from home, room air, [facility]. Awaiting further plan of care as pt is a new admission. RN advised no SW needs at this time. NORMA will continue to follow. Addendum: 07/17/21 at 1558 by CATRACHO GREEN Pt left AMA.
[2021-07-16] MEDS: IV NORMAL SALINE 1000ML BAG 1,000 ML IV SCH ×2 (12:09→22:59)
[2021-07-16] MEDS: oxyCODONE/APAP 5/325 1 TAB TABLET PO PRN ×2 (12:09→21:25)
--- NOTE | 2021-07-16 13:07 | HP ---
DATE OF SERVICE: 07/16/2021 ADMIT DATE: 07/15/2021 CHIEF COMPLAINT: Renal failure. HISTORY OF PRESENT ILLNESS: The patient is a pleasant 35-year-old male who presented to [facility] ER. Apparently when he was evaluated there, he was noted to have a BUN of 53 and a creatinine of 7.5. There was apparently a CAT scan done which also showed some pancreatitis. He was transferred to our facility for further evaluation. PAST MEDICAL HISTORY: Seizure disorder, ADHD, diabetes, renal stents. He states he is vaccinated. ALLERGIES: ASPIRIN AND HYDROCODONE. FAMILY HISTORY: Diabetes. 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 MEDICATIONS: Reviewed, please refer to the MRAD. REVIEW OF SYSTEMS: GENERAL: No history of weight change, weakness or fevers. SKIN: No bruising, hair changes or rashes. EYES: No blurred, double or loss of vision. NOSE AND THROAT: No history of nosebleeds, hoarseness or sore throat. HEART: No history of palpitations, chest pain or shortness of breath on exertion. LUNGS: Denies cough, hemoptysis, wheezing or shortness of breath. GASTROINTESTINAL: Denies changes in appetite, nausea, vomiting, diarrhea or constipation. GENITOURINARY: No history of frequency, urgency, hesitancy or nocturia. NEUROLOGIC: Denies history of numbness, tingling, tremor or weakness. PSYCHIATRIC: No history of panic, anxiety or depression. ENDOCRINE: No history of heat or cold intolerance, polyuria or polydipsia. EXTREMITIES: Denies muscle weakness, joint pain, pain on walking or stiffness. PHYSICAL EXAMINATION: VITALS: Within normal limits and are stable. GENERAL: No apparent distress. Alert and oriented. HEENT: Normal cephalic atraumatic, external auditory canals are patent. Eyes: Extraocular muscles are intact, pupils are equally round and reactive to light and accommodation. MUSCULOSKELETAL: Well developed, well nourished, good range of motion. ENDOCRINE: No thyromegaly was palpated. LYMPHATICS: No cervical chain or axillary nodes were noted. HEMATOPOIETIC: No bruising. NECK: Supple, no JVD, no thyromegaly was noted. LUNGS: Clear to auscultation in all lung hawkins without rhonchi or wheezing. HEART: RRR, S1, S2 present. Peripheral pulses intact, no obvious murmurs were noted. ABDOMEN: Soft, nontender. Positive bowel sounds, no organomegaly, normal bowel sounds. EXTREMITIES: Without any cyanosis, clubbing, or edema. Pedal pulses intact, Homans sign is negative. NEUROLOGIC: Normal speech, normal tone. A and O x 3, moves all extremities, no obvious focal deficits. PSYCHIATRIC: Normal affect, normal mood. Stable. SKIN: No ulcerations or rashes, good skin turgor, no jaundice. VASCULAR: Good capillary refill, neurovascular bundle appears to be intact. ASSESSMENT AND PLAN: Renal failure and possible pancreatitis. The patient has been admitted. We will consult Nephrology and GI. IV fluids, clear liquid diet. Home meds. Deep venous thrombosis prophylaxis. Full code. Trend labs. OSVALDO/ZACHARIAH DR: Sam TID: [id number]
--- NOTE | 2021-07-16 14:16 | PDOC2 ---
GI CONSULT Date of Service: DATE: 07/16/21 TIME: 13:36 Reason For Consult: possible pancreatitis HPI: HPI: 35 y/o male who is not a good historian. Transferred from [facility] reviewed incomplete records from there in paper chart. ER note indicates evaluated for panic attack/out of anxiety medication, but he says he went to the ER because he "couldn't move" for a day. ER note lists following lab results: WBC 23, Hgb 9.9, plt 746, Cr 7.5, BUN 53, CK 1128. Apparently h/o CKD but labs worse compared to previous. CT A/P w/o contrast noted inflammatory changes at pancreatic head with a peripancreatic cystic lesion anterior to pancreatic head neck junction measuring 4.7cm. Report also mentions fluid collection along greater curvature of stomach, normal gallbladder, small pericardial effusion, and no perinephric inflammation, ureteral calculi, or hydronephrosis. We are asked to see for CT results. Pt ate entire regular lunch tray before I saw him and denies any GI symptoms including abdominal pain and n/v. We have seen him in the past. H/o chronic pancreatitis (unclear cause) and pseudocyst - most recent GI consult note from 01/[address] Marquez @ . Also mentions h/o SMV thrombosis. He says his current symptoms are unlike past pancreatitis symptoms. Reports "pancreas stent" placed at [facility] on the [place] a couple weeks ago and he's trying to be seen at again. Says he's probably had EGD and colonoscopy but doesn't really know details. Past workup here: In 2018: normal IgG4, negative JOVITA, US w/ GB polyp, and MRCP w/ acute pancreatitis, no choledocholithiasis, and splenomegaly. In 2020: CT A/P showed large amount of inflammatory changes within the upper abdomen as well as high density material involving the pancreas, stomach and liver with some loculated lower density regions which could be from loculated fluid which could be sterile or infected and some lower density regions which could be secondary to pseudocyst or abscess formation, severe wall thickening of the stomach through this area with a large amount of surrounding inflammation, a calcification at the pancreatic head and uncinate process region which could be from chronic pancreatitis or secondary to a stone within the duct, lymphadenopathy in the upper abdomen, wall thickening of esophagus, and diverticulosis. Doesn't really know what meds he takes - thinks might take something for cholesterol but maybe that was stopped because he lost weight. Per past summary list, was on statin at one point. Does know he takes Tylenol p.m. and denies use of other pain medications. PMH: PMH: see HPI also reviewed in chart: anxiety, depression, bipolar, DM, CKD ?renal stents FH: Family History: Other (sister - cholecystectomy/cholelithiasis, pancreatectomy) Social History: Smoke: 2 packs per day ALCOHOL: none Drugs: None ROS: GEN: Denies fevers, chills, sweats HEENT: Denies blurred vision, sore throat CV: Denies chest pain RESP: Denies shortness of air, cough GI: Per HPI : Denies hematuria, dysuria ENDO: +weight loss NEURO: Denies confusion, dizziness MSK: +weakness SKIN: Denies jaundice, pruritus Vitals: Vitals: Vital Signs Date Time Temp Pulse Resp B/P (MAP) Pulse Ox O2 Delivery O2 Flow Rate FiO2 07/16/21 12:44 96 Room Air 07/16/21 11:00 98.3 96 18 107/62 (77) 98.3 Labs: Labs: Laboratory Tests Test 07/16/21 11:20 Glucose (Fingerstick) 94 mg/dL (70-99) Allergies: Coded Allergies: aspirin (Verified Allergy, Severe, anaphalyxis, 11/06/17) hydrocodone (Verified Allergy, Intermediate, PERCOCET AT HOME, 07/16/21) Medications: Current Medications Medications (Trade) Dose Ordered Sig/Chely Route PRN Reason Start Time Stop Time Status Last Admin Dose Admin Oxycodone/ Acetaminophen (Percocet 5/325) 1 tab PRN Q4HRS PRN PO PAIN 07/16/21 12:15 07/16/21 12:09 Sodium Chloride 1,000 ml @ 75 mls/hr [id number] IV 07/16/21 12:30 07/16/21 12:09 Imaging: Imaging: see HPI PE: GEN: NAD - in COVID isolation w/ pending test - lunch tray 100% consumed HEENT: Atraumatic, PERRL LUNGS: CTAB HEART: RRR ABD: NABS, S/ND/NT EXTREMITY: No edema SKIN: No rashes, no jaundice NEURO/PSYCH: A & O 3, odd affect, forgetful A/P: A/P: Rhabdo, leukocytosis, CKD/ABDIEL - h/o HLD on statin? Anemia - noted in past w/ microcytosis H/o chronic pancreatitis/pseudocyst ?and SMV thrombosis (?and stent) CRC screen - average risk Diverticulosis -- Pancreas issues known/chronic. Apparently not bothersome at this time. Supportive care from GI standpoint. Nephrology opinion pending. MEERA ZHOU Jul 16, 2021 14:16
[2021-07-16 15:00] VITALS: BP 103/57
[2021-07-16 19:00] VITALS: BP 115/68
[2021-07-16 23:50] VITALS: BP 108/50
[2021-07-17 03:22] VITALS: BP 101/50
[2021-07-17 07:00] VITALS: BP 98/43
[2021-07-17 08:16] LABS: BASO # 0.1 x10^3/uL (0.0-0.2); BASO % 1 % (0-3); EOS # 0.1 x10^3/uL (0.0-0.7); EOS % 2 % (0-3); HEMATOCRIT 23.2 % (39.0-53.0); HEMOGLOBIN 7.8 g/dL (13.0-17.5); LYMPH # 1.5 x10^3/uL (1.0-4.8); LYMPH % 19 % (24-48); MEAN CORPUSCULAR HEMOGLOBIN 27 pg (25-35); MEAN CORPUSCULAR HGB CONC 34 g/dL (31-37); MEAN CORPUSCULAR VOLUME 80 fL (79-100); MONO # 0.6 x10^3/uL (0.0-1.1); MONO % 7 % (0-9); NEUT # 5.8 x10^3/uL (1.8-7.7); NEUT % 72 % (31-73); PLATELET COUNT 459 x10^3/uL (140-400); RED BLOOD COUNT 2.91 x10^6/uL (4.30-5.70); RED CELL DISTRIBUTION WIDTH 16.3 % (11.5-14.5); WHITE BLOOD COUNT 8.1 x10^3/uL (4.0-11.0)
[2021-07-17 08:20] LABS: CALCIUM 6.6 mg/dL (8.5-10.1); CREATININE 3.2 mg/dL (0.7-1.3); GFR 22.1
[2021-07-17 08:30] LABS: POTASSIUM 1.9 mmol/L (3.5-5.1)
[2021-07-17] MEDS ORDERED: POTASSIUM CHLORIDE 20 MEQ TABLET.ER. PO ONE ×3 (09:30→15:00)
--- NOTE | 2021-07-17 09:49 | PDOC ---
Date of Service: DATE: 07/17/21 TIME: 09:44 Subjective: Subjective: Feeling better - says "I can move my hands!" No n/v, no abd pain. Objective: Vital Signs: Vital Signs Date Time Temp Pulse Resp B/P (MAP) Pulse Ox O2 Delivery O2 Flow Rate FiO2 07/17/21 08:00 Room Air 07/17/21 07:00 98.3 67 16 98/43 (61) 95 98.3 Labs: Laboratory Tests Test 07/16/21 11:20 07/16/21 20:05 07/17/21 07:09 07/17/21 07:50 Glucose (Fingerstick) 94 mg/dL 153 mg/dL 111 mg/dL White Blood Count 8.1 x10^3/uL Red Blood Count 2.91 x10^6/uL Hemoglobin 7.8 g/dL Hematocrit 23.2 % Mean Corpuscular Volume 80 fL Mean Corpuscular Hemoglobin 27 pg Mean Corpuscular Hemoglobin Concent 34 g/dL Red Cell Distribution Width 16.3 % Platelet Count 459 x10^3/uL Neutrophils (%) (Auto) 72 % Lymphocytes (%) (Auto) 19 % Monocytes (%) (Auto) 7 % Eosinophils (%) (Auto) 2 % Basophils (%) (Auto) 1 % Neutrophils # (Auto) 5.8 x10^3/uL Lymphocytes # (Auto) 1.5 x10^3/uL Monocytes # (Auto) 0.6 x10^3/uL Eosinophils # (Auto) 0.1 x10^3/uL Basophils # (Auto) 0.1 x10^3/uL Sodium Level 134 mmol/L Potassium Level 1.9 mmol/L Chloride Level 83 mmol/L Carbon Dioxide Level 42 mmol/L Anion Gap 9 Blood Urea Nitrogen 44 mg/dL Creatinine 3.2 mg/dL Estimated GFR (Cockcroft-Gault) 22.1 Glucose Level 121 mg/dL Calcium Level 6.6 mg/dL Lipase 2157 U/L PE: GEN: NAD - sitting on edge of bed eating breakfast LUNGS: CTAB HEART: RRR ABD: S/ND/NT NEURO/PSYCH: A & O 3 A/P: Rhabdo, CKD/ABDIEL (better) Hypokalemia Chronic anemia H/o chronic pancreatitis/pseudocyst w/ biliary stent -- Elevated lipase noted and reviewed CT yesterday; however, no GI complaints and tolerating diet w/o issue. Observe from GI standpoint - should f/u w/ [facility] and/or [facility]. Justicifation of Admission Dx: Justifications for Admission: Justification of Admission Dx: Yes MEERA ZHOU Jul 17, 2021 09:49
[2021-07-17 10:08] LABS: ALBUMIN 2.1 g/dL (3.4-5.0); DIRECT BILIRUBIN 1.3 mg/dL (0.0-0.2); TOTAL BILIRUBIN 1.4 mg/dL (0.2-1.0); TOTAL PROTEIN 6.7 g/dL (6.4-8.2)
--- NOTE | 2021-07-17 10:11 | PDOC ---
[employer] PROGRESS NOTE Date of Service DOS: DATE: 07/17/21 TIME: 10:10 Chief Complaint Chief Complaint Renal failure Pancreatitis History of Present Illness History of Present Illness 07/17/21 Patient seen and examined bedside His creatinine is down from 7.5-3.2 Potassium down to 1.9 we are replacing it Chart reviewed Discussed with RN Discussed with case finisher Vitals/I&O Vitals/I&O: Vital Signs Date Time Temp Pulse Resp B/P (MAP) Pulse Ox O2 Delivery O2 Flow Rate FiO2 07/17/21 08:00 Room Air 07/17/21 07:00 98.3 67 16 98/43 (61) 95 98.3 Physical Exam Lungs: Clear Labs Labs: Laboratory Tests Test 07/16/21 11:20 07/16/21 20:05 07/17/21 07:09 07/17/21 07:50 Glucose (Fingerstick) 94 mg/dL (70-99) 153 mg/dL (70-99) 111 mg/dL (70-99) White Blood Count 8.1 x10^3/uL (4.0-11.0) Red Blood Count 2.91 x10^6/uL (4.30-5.70) Hemoglobin 7.8 g/dL (13.0-17.5) Hematocrit 23.2 % (39.0-53.0) Mean Corpuscular Volume 80 fL (79-100) Mean Corpuscular Hemoglobin 27 pg (25-35) Mean Corpuscular Hemoglobin Concent 34 g/dL (31-37) Red Cell Distribution Width 16.3 % (11.5-14.5) Platelet Count 459 x10^3/uL (140-400) Neutrophils (%) (Auto) 72 % (31-73) Lymphocytes (%) (Auto) 19 % (24-48) Monocytes (%) (Auto) 7 % (0-9) Eosinophils (%) (Auto) 2 % (0-3) Basophils (%) (Auto) 1 % (0-3) Neutrophils # (Auto) 5.8 x10^3/uL (1.8-7.7) Lymphocytes # (Auto) 1.5 x10^3/uL (1.0-4.8) Monocytes # (Auto) 0.6 x10^3/uL (0.0-1.1) Eosinophils # (Auto) 0.1 x10^3/uL (0.0-0.7) Basophils # (Auto) 0.1 x10^3/uL (0.0-0.2) Sodium Level 134 mmol/L (136-145) Potassium Level 1.9 mmol/L (3.5-5.1) Chloride Level 83 mmol/L (98-107) Carbon Dioxide Level 42 mmol/L (21-32) Anion Gap 9 (6-14) Blood Urea Nitrogen 44 mg/dL (8-26) Creatinine 3.2 mg/dL (0.7-1.3) Estimated GFR (Cockcroft-Gault) 22.1 Glucose Level 121 mg/dL (70-99) Calcium Level 6.6 mg/dL (8.5-10.1) Iron Level 63 ug/dL (65-175) Total Iron Binding Capacity 234 ug/dL (250-450) Iron Saturation 27 % (15-34) Total Bilirubin 1.4 mg/dL (0.2-1.0) Direct Bilirubin 1.3 mg/dL (0.0-0.2) Aspartate Amino Transf (AST/SGOT) 46 U/L (15-37) Alanine Aminotransferase (ALT/SGPT) 42 U/L (16-63) Alkaline Phosphatase 569 U/L (46-116) Total Protein 6.7 g/dL (6.4-8.2) Albumin 2.1 g/dL (3.4-5.0) Lipase 2157 U/L (73-393) Assessment and Plan Assessmemt and Plan ASSESSMENT Renal failure Pancreatitis. Hypokalemia Plan Monitor labs (His creatinine is down from 7.5-3.2) Potassium down to 1.9 and we are replacing it today GI nephrology following IV fluids Home meds Deep venous thrombosis prophylaxis Full code Trend labs Comment Review of Relevant I have reviewed the following items lucia (where applicable) has been applied. Medications: Current Medications Medications (Trade) Dose Ordered Sig/Chely Route PRN Reason Start Time Stop Time Status Last Admin Dose Admin Oxycodone/ Acetaminophen (Percocet 5/325) 1 tab PRN Q4HRS PRN PO PAIN 07/16/21 12:15 07/16/21 21:25 Sodium Chloride 1,000 ml @ 75 mls/hr [id number] IV 07/16/21 12:30 07/16/21 22:59 Potassium Chloride (Klor-Con) 40 meq 1X ONCE PO 07/17/21 09:30 07/17/21 09:31 DC 07/17/21 08:57 Justifications for Admission Other Justification Acute on chronic pancreatitis CHRISTINA HAMILTON III DO Jul 17, 2021 10:11
[2021-07-17 11:00] VITALS: BP 106/63
--- NOTE | 2021-07-17 14:48 | NUR ---
DISCHARGE NOTE: Patient is leaving AMA, 20 gauge right FA IV removed, tip intact.
== END 2021-07-17 15:19 | disposition left against medical advice (07) | DRG 438 ==
LOC: 5 SOUTH 23:01
PROVIDERS: ADMIT Internal Medicine; ATTEND Internal Medicine
DX: K85.90 Acute pancreatitis without necrosis or infection, unspecified (principal); N17.0 Acute kidney failure with tubular necrosis; I31.3 Pericardial effusion (noninflammatory); K86.3 Pseudocyst of pancreas; M62.82 Rhabdomyolysis; K57.90 Diverticulosis of intestine, part unspecified, without perforation or abscess without bleeding; K86.1 Other chronic pancreatitis; D64.9 Anemia, unspecified; E11.22 Type 2 diabetes mellitus with diabetic chronic kidney disease; E87.6 Hypokalemia; F17.210 Nicotine dependence, cigarettes, uncomplicated; F32.A Depression, unspecified; F41.9 Anxiety disorder, unspecified; G40.909 Epilepsy, unspecified, not intractable, without status epilepticus; N18.9 Chronic kidney disease, unspecified; Z83.3 Family history of diabetes mellitus; F90.9 Attention-deficit hyperactivity disorder, unspecified type; Z88.8 Allergy status to other drugs, medicaments and biological substances; Z79.899 Other long term (current) drug therapy; Z53.29 Procedure and treatment not carried out because of patient's decision for other reasons
CPT/HCPCS: 36415; 80048; 80076; 82607; 82962; 83540; 83550; 83690; 84132; 85025; J7030; G0378